=== PATIENT | male | born 1970 | race Caucasian/White ===

== ENCOUNTER → 2024-01-10 | Outpatient (CLI) | payer BC | LOC: VAS 08:57 | DX: I82.412 Acute embolism and thrombosis of left femoral vein (principal) ==

== ENCOUNTER → 2024-01-20 | Outpatient (CLI) | payer BC ==
[~2024-01-20] MED LIST: Iohexol 350 - 100 ML VIAL IV ONE
== END ==
LOC: RAD 08:00
DX: R06.00 Dyspnea, unspecified (principal); I82.412 Acute embolism and thrombosis of left femoral vein
CPT/HCPCS: Q9967

== ENCOUNTER → 2024-03-27 | Outpatient (CLI) | payer BC ==
[2024-03-27 09:15] LABS: BASO # 0.02 K/mm3 (0.02-0.10); EOS # 0.14 K/mm3 (0.04-0.40); EOS % 1.5 % (0.0-4.0); HEMATOCRIT 47.9 % (42.0-52.0); HEMOGLOBIN 15.7 g/dL (13.5-18.0); LYMPH# 2.54 K/mm3 (1.50-4.00); MEAN CELL VOLUME 90 fl (78-100); MEAN CORPUSCULAR HEMOGLOBIN 29 pg (27-31); MEAN CORPUSCULAR HGB CONC 33 g/dL (33-37); MEAN PLATELET VOLUME 9.3 fl (7.4-10.4); MONO # 0.77 K/mm3 (0.20-0.80); NEU # 5.72 K/mm3 (1.40-6.50); PLATELET COUNT 292 K/mm3 (130-400); RED BLOOD COUNT 5.34 M/mm3 (4.20-5.60); RED CELL DISTRIBUTION WIDTH 14.1 % (11.5-14.5); WHITE BLOOD COUNT 9.2 K/mm3 (4.8-10.8)
[2024-03-27 09:18] LABS: ALBUMIN 4.1 g/dL (3.5-5.0)
[2024-03-27 09:20] LABS: CALCIUM 9.8 mg/dL (8.3-10.5)
[2024-03-27 09:21] LABS: TOTAL PROTEIN 7.2 g/dL (6.4-8.3)
[2024-03-27 09:23] LABS: TOTAL BILIRUBIN 0.2 mg/dL (0.2-1.2)
[2024-03-27 09:27] LABS: MAGNESIUM 1.98 mg/dL (1.60-2.60)
== END ==
LOC: LAB 08:59
PROVIDERS: Internal Medicine
DX: E61.2 Magnesium deficiency (principal); E61.1 Iron deficiency